=== PATIENT | female | born 1985 | race Caucasian/White ===

== ENCOUNTER 2019-12-19 10:26 | Emergency (ER) | payer MEDICAID ==
--- NOTE | 2019-12-19 10:30 | UC ---
Hand/Wrist HPI - HPI Summary HPI Summary: 34 yo female presents with LEFT thumb/wrist pain. She tells me that yesterday she was cleaning and noticed left wrist pain that radiates into her left thumb and thenar region. Worse with movement of thumb. Noted some mild swelling and bruising to the area. Rested and took ibuprofen with no relief. Today symptoms have continued. She is right handed. Denies specific injury. 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 States intermittent numbness to left thumb, index, middle, and dorsal hand. No elbow pain. Last dose ibuprofen was yesterday - History Of Current Complaint Stated Complaint: HAND INJURY Time Seen by Provider: 12/19/19 10:29 Hx Obtained From: Patient Onset/Duration: Sudden Onset Severity Initially: Severe Severity Currently: Severe Pain Intensity: 8 Pain Scale Used: 0-10 Numeric - Allergies/Home Medications Allergies/Adverse Reactions: Allergies Allergy/AdvReac Type Severity Reaction Status Date / Time No Known Allergies Allergy Verified 12/19/19 10:46 Home Medications: Home Medications Ibuprofen TAB* [Advil TAB*] 200 mg PO Q6H PRN 12/19/19 [History Confirmed ] Naproxen [Naproxen 500 mg tab] 500 mg PO BID PRN #14 tablet 12/19/19 [Rx] PMH/Surg Hx/FS Hx/Imm Hx - Additional Past Medical History Additional PMH: None - Surgical History Surgical History: Yes Surgery Procedure, Year, and Place: Tubal - Family History Known Family History: Positive: None - Social History Occupation: Employed Full-time Lives: With Family Alcohol Use: Occasionally Substance Use Type: None Smoking Status (MU): Never Smoked Tobacco Review of Systems All Other Systems Reviewed And Are Negative: No Constitutional: Positive: Negative Skin: Positive: Negative Respiratory: Positive: Negative Cardiovascular: Positive: Negative Neurovascular: Positive: Negative Musculoskeletal: Positive: Other: - Left wrist pain Neurological/Mental Status: Positive: Negative Psychological: Positive: Negative Physical Exam - Summary Physical Exam Summary: GENERAL: NAD. WDWN. No pain distress. SKIN: No rashes, sores, lesions, or open wounds. No ecchymosis noted. CHEST: No accessory muscle use. Breathing comfortably and in no distress. CV: Pulses intact radial and ulnar. Cap refill <2seconds MSK: LEFT wrist: TTP about thumb tendons EPL, EPB, and APL. POSITIVE santa test. Decreased ROM to thumb due to pain. FROM digits 2-5. No edema or obvious bony deformities. No snuffbox tenderness. Negative tinel sign. NEURO: Alert. Sensations intact hand and all fingers. PSYCH: Age appropriate behavior. Triage Information Reviewed: Yes Vital Signs: Vital Signs: Temp Pulse Resp BP Pulse Ox 97.4 F 76 18 157/66 99 12/19/19 10:56 12/19/19 10:56 12/19/19 10:56 12/19/19 10:56 12/19/19 10:56 Vital Signs Reviewed: Yes Diagnostics - Radiology Wrist XR Radiology Interpretation Completed By: ED Physician Summary of Radiographic Findings: No acute process Hand/Wrist Course/Dx - Course Course Of Treatment: XR wet read negative Suspect thumb tendinitis. Pt was given toradol IM in the clinic and provided with a thumb spica splint to use for comfort. Advised continued RICE and will rx for naproxen to start later today. Will provide her with a work note for today and tomorrow. Recommend f/u with Ortho if symptoms do not improve - Differential Dx/Diagnosis Provider Diagnosis: Thumb tendonitis Discharge ED - Sign-Out/Discharge Documenting (check all that apply): Patient Departure All imaging exams completed and their final reports reviewed: Yes - Discharge Plan Condition: Stable Disposition: HOME Prescriptions: Naproxen [Naproxen 500 mg tab] 500 mg PO BID PRN #14 tablet PRN Reason: Pain - Moderate Patient Education Materials: Skier's Thumb (ED), Tendinitis (ED) Forms: *Work Release Referrals: No Primary Care Phys,NOPCP [Primary Care Provider] - Hal Fonseca MD [Medical Doctor] - If Needed Additional Instructions: If you develop a fever, shortness of breath, chest pain, new or worsening symptoms - please call your PCP or go to the ED immediately. The x-ray of your wrist was normal today. I suspect you have some tendinitis from overuse of your hand. This should resolve with time, rest, and anti- inflammatory medications such as Naproxen. Rest, Ice, and elevate your wrist/hand to reduce pain and swelling Use the thumb brace for comfort May start naproxen later today around 4:00pm If symptoms do not improve within 4-5 days, please call Orthopedics at the number below to schedule an appointment for a recheck - Billing Disposition and Condition Condition: STABLE Disposition: Home
[2019-12-19] MEDS ORDERED: Ketorolac *IM* INJ* 60 MG/2 ML VIAL IM ONE ×2 (10:39)
== END 2019-12-19 11:06 | disposition home or self-care (01) ==
LOC: UCEAST 10:26
DX: M65.842 Other synovitis and tenosynovitis, left hand (principal)
CPT/HCPCS: 96372; 99202; G0463; J1885

== ENCOUNTER 2020-09-03 01:02 | Inpatient (IN) ==
[2020-09-03 02:22] LABS: Hematocrit 39 % (35-47); Hemoglobin 12.8 g/dL (12.0-16.0); Mean Corpuscular HGB Conc 33 g/dL (31-36); Mean Corpuscular Hemoglobin 27 pg (27-31); Mean Corpuscular Volume 81 fL (80-97); Mean Platelet Volume 9.3 fL (7.4-10.4); Platelet Count 318 10^3/uL (150-450); Red Blood Count 4.81 10^6 /uL (3.70-4.87); Red Cell Distribution Width 14 % (10-15)
[2020-09-03] MEDS: NS 0.9% 1000 ml BAG 1,000 ML IV ONE ×3 (02:24→03:29)
[2020-09-03] MEDS ORDERED: Vancomycin 1,500 MG in NS 0.9% 250 ml 250 ML IVPB ONE (02:28)
[2020-09-03] MEDS ORDERED: cefTRIAXone 2 GM ADDV.VIAL 2 GM in NS 0.9% 100 ml BAG 100 ML IVPB ONE (02:28)
[2020-09-03 02:38] LABS: ALT 25 U/L (7-52); AST 19 U/L (13-39); Albumin 4.1 g/dL (3.2-5.2); Albumin/Globulin Ratio 1.4 (1-3); Alkaline Phosphatase 78 U/L (34-104); Anion Gap 12 mmol/L (2-11); BUN/Creatinine Ratio 19.5 (8-20); Blood Urea Nitrogen 16 mg/dL (6-24); C Reactive Protein 2.32 mg/L (<8.01); CO2 Carbon Dioxide 21 mmol/L (22-32); Chloride 107 mmol/L (101-111); EGFR African American 97.1 (>60); EGFR Non-African American 80.3 (>60); Glucose 146 mg/dL (70-100); Potassium 3.9 mmol/L (3.5-5.0); Sodium 140 mmol/L (135-145); Total Protein 7.1 g/dL (6.4-8.9)
[2020-09-03 02:45] LABS: HCG Pregnancy < 0.60 mIU/mL
[2020-09-03] MEDS ORDERED: Piperacillin/Tazobac ADVAN 3.375 GM in NS 0.9% 100 ml BAG 100 ML IVPB ONE (02:57)
[2020-09-03] MEDS ORDERED: Remdesivir 5 MG/ML LIQ IV Vial 100 MG in NS 0.9% 250 ml 230 ML IV SCH (03:15)
[2020-09-03 04:27] LABS: Ferritin 11.8 ng/mL (11-307)
[2020-09-03] MEDS ORDERED: Albuterol HFA INHALER 8 gm MDI INH PRN (04:38)
[2020-09-03] MEDS ORDERED: Remdesivir 5 MG/ML LIQ IV Vial 200 MG in NS 0.9% 250 ml 210 ML IV ONE (05:00)
[2020-09-03 06:07] LABS: Polychromasia 1+
[2020-09-03 06:10] LABS: ABS Monocytes 0.2 10^3/ul (0-0.8); ABS Neutrophils 10.9 10^3/ul (1.5-7.7); Lymphocyte % 8.4 %
[2020-09-03] MEDS: Enoxaparin 40 MG/0.4 ML SYR SUBCUT SCH (06:18)
[2020-09-03] MEDS: Morphine 2 MG/ML SYRINGE IV PRN ×4 (06:18→19:55)
[2020-09-03] MEDS: NS 0.9% 1000 ml BAG 1,000 ML IV SCH (06:38)
[2020-09-03] MEDS: Mometasone/Formoter 100/5 MDI INH SCH ×2 (08:06→21:15)
[2020-09-03] MEDS ORDERED: NS 0.9% 1000 ml BAG 1,000 ML IV ONE (14:34)
[2020-09-03] MEDS: Dexamethasone IV 4 MG/ML VIAL 1 ml VIAL IV SLOW PU SCH (19:55)
[2020-09-03] MEDS ORDERED: Dexamethasone IV 4 MG/ML VIAL 1 ml VIAL IV SLOW PU SCH (21:00)
[2020-09-04] MEDS: Morphine 2 MG/ML SYRINGE IV PRN ×4 (02:51→19:19)
[2020-09-04] MEDS: NS 0.9% 1000 ml BAG 1,000 ML IV SCH ×2 (05:47→19:18)
[2020-09-04 06:34] LABS: Hematocrit 34 % (35-47); Hemoglobin 11.2 g/dL (12.0-16.0); Mean Corpuscular HGB Conc 33 g/dL (31-36); Mean Corpuscular Hemoglobin 27 pg (27-31); Mean Corpuscular Volume 81 fL (80-97); Mean Platelet Volume 9.5 fL (7.4-10.4); Platelet Count 249 10^3/uL (150-450); Red Blood Count 4.18 10^6 /uL (3.70-4.87); Red Cell Distribution Width 14 % (10-15); White Blood Count 8.7 10^3/uL (3.5-10.8)
[2020-09-04 06:49] LABS: Albumin 3.5 g/dL (3.2-5.2); Albumin/Globulin Ratio 1.3 (1-3); BUN/Creatinine Ratio 17.7 (8-20); Calcium 8.3 mg/dL (8.6-10.3); EGFR African American 134.1 (>60); EGFR Non-African American 110.9 (>60); Globulin 2.6 g/dL (2-4); Potassium 4.2 mmol/L (3.5-5.0); Total Bilirubin 0.3 mg/dL (0.2-1.0); Total Protein 6.1 g/dL (6.4-8.9)
[2020-09-04] MEDS: Mometasone/Formoter 100/5 MDI INH SCH ×2 (08:13→20:54)
[2020-09-04] MEDS: Remdesivir 5 MG/ML LIQ IV Vial 100 MG in NS 0.9% 250 ml 230 ML IV SCH (09:14)
[2020-09-04] MEDS: Enoxaparin 40 MG/0.4 ML SYR SUBCUT SCH (09:17)
[2020-09-04] MEDS ORDERED: NS 0.9% 1000 ml BAG 1,000 ML IV ONE (10:20)
[2020-09-04] MEDS: Dexamethasone IV 4 MG/ML VIAL 1 ml VIAL IV SLOW PU SCH (19:18)
[2020-09-05] MEDS: Morphine 2 MG/ML SYRINGE IV PRN ×5 (01:38→22:46)
[2020-09-05] MEDS: NS 0.9% 1000 ml BAG 1,000 ML IV SCH (04:47)
[2020-09-05 05:00] LABS: ABS Basophils 0.1 10^3/ul (0-0.2); ABS Lymphocytes 1.3 10^3/ul (1.0-4.8); ABS Monocytes 0.3 10^3/ul (0-0.8); ABS Neutrophils 7.6 10^3/ul (1.5-7.7); Eosinophil % 0.1 %; Hematocrit 33 % (35-47); Lymphocyte % 14.3 %; Mean Corpuscular HGB Conc 33 g/dL (31-36); Mean Corpuscular Hemoglobin 27 pg (27-31); Mean Corpuscular Volume 80 fL (80-97); Mean Platelet Volume 9.2 fL (7.4-10.4); Nucleated Red Blood Cells % 0.1; Platelet Count 252 10^3/uL (150-450); Red Cell Distribution Width 14 % (10-15); White Blood Count 9.3 10^3/uL (3.5-10.8)
[2020-09-05 05:14] LABS: Albumin 3.3 g/dL (3.2-5.2); Albumin/Globulin Ratio 1.4 (1-3); C Reactive Protein 1.16 mg/L (<8.01); Calcium 7.7 mg/dL (8.6-10.3); EGFR African American 136.7 (>60); Globulin 2.4 g/dL (2-4); Potassium 4.1 mmol/L (3.5-5.0); Total Bilirubin 0.2 mg/dL (0.2-1.0); Total Protein 5.7 g/dL (6.4-8.9)
[2020-09-05] MEDS: Mometasone/Formoter 100/5 MDI INH SCH ×2 (08:05→20:12)
[2020-09-05] MEDS: Enoxaparin 40 MG/0.4 ML SYR SUBCUT SCH (08:48)
[2020-09-05] MEDS: Remdesivir 5 MG/ML LIQ IV Vial 100 MG in NS 0.9% 250 ml 230 ML IV SCH (08:48)
[2020-09-05] MEDS ORDERED: Ondansetron ODT 4 mg TAB 4 MG TAB SL PRN (18:13)
[2020-09-05] MEDS: Dexamethasone IV 4 MG/ML VIAL 1 ml VIAL IV SLOW PU SCH (20:10)
[2020-09-06] MEDS: Mometasone/Formoter 100/5 MDI INH SCH (08:21)
[2020-09-06] MEDS: Remdesivir 5 MG/ML LIQ IV Vial 100 MG in NS 0.9% 250 ml 230 ML IV SCH (09:33)
[2020-09-06] MEDS: Enoxaparin 40 MG/0.4 ML SYR SUBCUT SCH (09:34)
[2020-09-06 15:13] VITALS: BP 131/66
== END 2020-09-06 16:25 | disposition home or self-care (01) | DRG 720 ==
LOC: ED 01:02 → MED 03:10
PROVIDERS: ADMIT Hospitalist; ATTEND Internal Medicine

== ENCOUNTER 2022-05-01 01:06 | Inpatient (IN) ==
[2022-05-01] MEDS ORDERED: NS 0.9% 1000 ml BAG 1,000 ML IV ONE (01:28)
[2022-05-01] MEDS ORDERED: Prochlorperazine 5 mg/ml 2 ml VIAL (10 mg) IV ONE (01:30)
[2022-05-01 02:16] LABS: ABS Eosinophils 0.1 10^3/ul (0-0.6); ABS Lymphocytes 2.7 10^3/ul (1.0-4.8); ABS Monocytes 0.7 10^3/ul (0-0.8); ABS Neutrophils 6.5 10^3/ul (1.5-7.7); Eosinophil % 1.2 %; Hematocrit 38 % (35-47); Hemoglobin 12.5 g/dL (12.0-16.0); Lymphocyte % 26.6 %; Mean Corpuscular HGB Conc 33 g/dL (31-36); Mean Corpuscular Hemoglobin 27 pg (27-31); Mean Corpuscular Volume 80 fL (80-97); Mean Platelet Volume 9.5 fL (7.4-10.4); Nucleated Red Blood Cells % 0.1; Platelet Count 267 10^3/uL (150-450); Red Blood Count 4.71 10^6 /uL (3.70-4.87); Red Cell Distribution Width 13 % (10-15)
[2022-05-01 02:47] LABS: ALT 39 U/L (7-52); AST 26 U/L (13-39); Albumin/Globulin Ratio 1.5 (1-3); Alkaline Phosphatase 87 U/L (35-149); Anion Gap 10 mmol/L (2-11); Blood Urea Nitrogen 10 mg/dL (6-24); CO2 Carbon Dioxide 26 mmol/L (22-32); Calcium 9.1 mg/dL (8.6-10.3); Chloride 104 mmol/L (101-111); Globulin 2.7 g/dL (2-4); Glucose 101 mg/dL (70-100); Potassium 3.8 mmol/L (3.5-5.0); Sodium 140 mmol/L (135-145); Total Protein 6.7 g/dL (6.4-8.9); eGFR CKD-EPI 116.3 (>60)
[2022-05-01] MEDS ORDERED: Lorazepam PYXIS KEY PRN ×2 (02:48→05:49)
[2022-05-01] MEDS ORDERED: LORazepam 2 mg VIAL 1 ml IV PUSH ONE ×2 (02:48→05:49)
[2022-05-01 02:54] LABS: HCG Pregnancy < 0.60 mIU/mL
[2022-05-01] MEDS ORDERED: Metoclopramide 5 MG/ML VIAL (10 mg) IV SLOW PU ONE (06:00)
[2022-05-01] MEDS: NS 0.9% 1000 ml BAG 1,000 ML IV SCH ×2 (06:08→16:17)
[2022-05-01] MEDS ORDERED: Droperidol 5 MG/2 ML 2 ML VIAL IV ONE (08:07)
[2022-05-01] MEDS ORDERED: methylPREDNISolone SOD SUCC 125 mg 2 ML VIAL IV ONE (08:52)
[2022-05-01] MEDS ORDERED: Promethazine INJ(RESTRICTED) 25 MG/ML 1 ml VIAL IM ONE (11:08)
[2022-05-01] MEDS: Ondansetron 4 mg VIAL 2 MG/ML 2 ml VIAL IV PRN (17:37)
[2022-05-02] MEDS: Ondansetron 4 mg VIAL 2 MG/ML 2 ml VIAL IV PRN ×3 (03:06→20:14)
[2022-05-02] MEDS ORDERED: Lidocaine PATCH 5% PATCH TRANSDERM STA (10:39)
[2022-05-02] MEDS ORDERED: Gadoteridol (CONTRAST) 279.3 MG/ML 10 ML IV ONE (12:49)
[2022-05-02 17:31] LABS: Urine Appearance Clear; Urine Bilirubin Negative (Negative); Urine Blood Negative (Negative); Urine Color Straw; Urine Glucose Negative (Negative); Urine Ketones Negative (Negative); Urine Protein Negative (Negative); Urine pH 5.5 (5.0-9.0)
[2022-05-02 17:32] LABS: Urine Nitrite Negative (Negative); Urine Urobilinogen 0.2 (Negative) (Negative)
[2022-05-02] MEDS ORDERED: Morphine 2 MG/ML SYRINGE IV ONE (23:00)
[2022-05-03] MEDS ORDERED: Albuterol 2.5mg/3 ml (0.083%) NEB.SOLN INH ONE ×2 (07:30→07:35)
[2022-05-03] MEDS ORDERED: Albuterol HFA INHALER 8 gm MDI INH PRN (07:31)
[2022-05-03] MEDS ORDERED: Albuterol/Ipratropium NEB.SOL (2.5/0.5 MG) 3 ML NEB.SOLN INH ONE (07:31)
[2022-05-03] MEDS: Ondansetron 4 mg VIAL 2 MG/ML 2 ml VIAL IV PRN ×2 (08:18→15:32)
[2022-05-03] MEDS ORDERED: Senna TAB 8.6 mg TAB PO PRN (13:21)
[2022-05-03] MEDS: Polyethylene Glycol 3350 17 GM PACKET PO SCH (14:18)
[2022-05-03] MEDS: Lidocaine PATCH 5% PATCH TRANSDERM SCH (15:36)
[2022-05-03] MEDS: Enoxaparin 40 MG/0.4 ML SYR SUBCUT SCH (17:57)
[2022-05-04 05:23] LABS: ABS Basophils 0.1 10^3/ul (0-0.2); ABS Eosinophils 0.1 10^3/ul (0-0.6); ABS Lymphocytes 3.5 10^3/ul (1.0-4.8); ABS Monocytes 0.8 10^3/ul (0-0.8); ABS Neutrophils 8.7 10^3/ul (1.5-7.7); Eosinophil % 0.4 %; Hematocrit 39 % (35-47); Hemoglobin 12.6 g/dL (12.0-16.0); Lymphocyte % 26.5 %; Mean Corpuscular HGB Conc 33 g/dL (31-36); Mean Corpuscular Hemoglobin 27 pg (27-31); Mean Corpuscular Volume 82 fL (80-97); Mean Platelet Volume 9.9 fL (7.4-10.4); Nucleated Red Blood Cells % 0.2; Platelet Count 253 10^3/uL (150-450); Red Blood Count 4.75 10^6 /uL (3.70-4.87); Red Cell Distribution Width 13 % (10-15); White Blood Count 13.1 10^3/uL (3.5-10.8)
[2022-05-04 05:38] LABS: Blood Urea Nitrogen 17 mg/dL (6-24); CO2 Carbon Dioxide 27 mmol/L (22-32); Calcium 9.5 mg/dL (8.6-10.3); Chloride 103 mmol/L (101-111); Glucose 89 mg/dL (70-100); Magnesium 2.2 mg/dL (1.9-2.7); Sodium 140 mmol/L (135-145); eGFR CKD-EPI 94.8 (>60)
[2022-05-04 05:39] LABS: Anion Gap 10 mmol/L (2-11)
[2022-05-04] MEDS: Ondansetron 4 mg VIAL 2 MG/ML 2 ml VIAL IV PRN ×2 (05:59→15:24)
[2022-05-04] MEDS: Polyethylene Glycol 3350 17 GM PACKET PO SCH (11:10)
[2022-05-04] MEDS: Lidocaine PATCH 5% PATCH TRANSDERM SCH (11:11)
[2022-05-04] MEDS ORDERED: Lactated Ringers 1000 ml BAG 1,000 ML IV ONE (11:47)
[2022-05-04] MEDS: Enoxaparin 40 MG/0.4 ML SYR SUBCUT SCH (15:24)
[2022-05-05] MEDS: Ondansetron 4 mg VIAL 2 MG/ML 2 ml VIAL IV PRN ×3 (03:23→22:02)
[2022-05-05 06:43] LABS: Calcium 9.2 mg/dL (8.6-10.3); Potassium 4.4 mmol/L (3.5-5.0); eGFR CKD-EPI 89.6 (>60)
[2022-05-05] MEDS: Lidocaine PATCH 5% PATCH TRANSDERM SCH (08:09)
[2022-05-05] MEDS: Polyethylene Glycol 3350 17 GM PACKET PO SCH (08:09)
[2022-05-05] MEDS: Senna TAB 8.6 mg TAB PO SCH (12:08)
[2022-05-05] MEDS: Enoxaparin 40 MG/0.4 ML SYR SUBCUT SCH (16:18)
[2022-05-06] MEDS: Ondansetron 4 mg VIAL 2 MG/ML 2 ml VIAL IV PRN ×2 (07:58→17:10)
[2022-05-06] MEDS: Polyethylene Glycol 3350 17 GM PACKET PO SCH (09:32)
[2022-05-06] MEDS: Senna TAB 8.6 mg TAB PO SCH (09:33)
[2022-05-06] MEDS: Lidocaine PATCH 5% PATCH TRANSDERM SCH (09:33)
[2022-05-06 14:41] LABS: TSH Ultra Thyroid Stim Horm 0.68 mcIU/mL (0.34-5.60)
[2022-05-06] MEDS: Enoxaparin 40 MG/0.4 ML SYR SUBCUT SCH (17:10)
[2022-05-06 20:57] LABS: Free T4 0.75 ng/dL (0.61-1.12)
[2022-05-07] MEDS: Ondansetron 4 mg VIAL 2 MG/ML 2 ml VIAL IV PRN ×3 (01:40→20:56)
[2022-05-07] MEDS: Senna TAB 8.6 mg TAB PO SCH (09:40)
[2022-05-07] MEDS: Lidocaine PATCH 5% PATCH TRANSDERM SCH (09:40)
[2022-05-07] MEDS: Polyethylene Glycol 3350 17 GM PACKET PO SCH (09:41)
[2022-05-07] MEDS: Acetaminophen IV 1 GM/100ML 1,000 MG/100 ML BAG IV PRN ×2 (17:03→23:56)
[2022-05-07] MEDS: Enoxaparin 40 MG/0.4 ML SYR SUBCUT SCH (17:03)
[2022-05-08] MEDS ORDERED: Magnesium Hydroxide LIQ 30 ML UDC PO PRN (07:31)
[2022-05-08] MEDS: Senna TAB 8.6 mg TAB PO SCH (08:34)
[2022-05-08] MEDS: Ondansetron 4 mg VIAL 2 MG/ML 2 ml VIAL IV PRN (08:34)
[2022-05-08] MEDS: Lidocaine PATCH 5% PATCH TRANSDERM SCH (08:35)
[2022-05-08] MEDS: Metoclopramide 5 MG/ML VIAL (10 mg) IV PRN ×2 (14:44→21:25)
[2022-05-08] MEDS: Enoxaparin 40 MG/0.4 ML SYR SUBCUT SCH (17:11)
[2022-05-09] MEDS: Metoclopramide 5 MG/ML VIAL (10 mg) IV PRN ×2 (08:43→20:23)
[2022-05-09] MEDS: Senna TAB 8.6 mg TAB PO SCH (10:18)
[2022-05-09] MEDS: Lidocaine PATCH 5% PATCH TRANSDERM SCH (10:19)
[2022-05-09] MEDS: Enoxaparin 40 MG/0.4 ML SYR SUBCUT SCH (17:25)
[2022-05-10] MEDS: Lidocaine PATCH 5% PATCH TRANSDERM SCH (08:27)
[2022-05-10] MEDS: Senna TAB 8.6 mg TAB PO SCH (08:27)
[2022-05-10] MEDS: Metoclopramide 5 MG/ML VIAL (10 mg) IV PRN ×2 (08:27→17:38)
[2022-05-10] MEDS: Enoxaparin 40 MG/0.4 ML SYR SUBCUT SCH (17:32)
[2022-05-11] MEDS: Metoclopramide 5 MG/ML VIAL (10 mg) IV PRN ×2 (02:28→09:18)
[2022-05-11] MEDS: Senna TAB 8.6 mg TAB PO SCH (09:10)
[2022-05-11] MEDS: Lidocaine PATCH 5% PATCH TRANSDERM SCH (10:54)
[2022-05-11 12:53] VITALS: BP 117/53
== END 2022-05-11 13:30 | disposition home or self-care (01) | DRG 111 ==
LOC: EDHOLD 01:06 → ED 01:06 → SUATTDRO 10:53 → MED 16:51 → SUATTDRO 05-03 15:49
PROVIDERS: ADMIT Hospitalist; ATTEND Internal Medicine